=== PATIENT | female | born 1975 | race Caucasian/White ===

== ENCOUNTER 2020-04-02 08:37 | Inpatient (IN) | payer SELFPAY ==
[~2020-04-02] VITALS: Ht 165.1 cm; Wt 102.0 kg
[2020-04-02] MEDS ORDERED: LIDOCAINE-MPF 1%, 5ML ONE (09:15)
[2020-04-02] MEDS ORDERED: MORPHINE SULFATE 4 MG/ML, 1ML ONE ×2 (09:21→10:11)
[2020-04-02] MEDS ORDERED: ONDANSETRON 2MG/ML, 2ML ONE ×2 (09:21→15:27)
[2020-04-02] MEDS: MORPHINE SULFATE 4 MG/ML, 1ML IVPush PRN ×2 (09:24→10:13)
--- NOTE | 2020-04-02 09:28 | NUR ---
PIV PLACED, LABS DRAWN AND COLLECTED BY BRICK CHIMNEY SUPERVISOR. PT AMBULATED TO RESTROOM WITH STEADY GAIT TO PROVIDE URINE SAMPLE. UA COLLECTED AND TAKEN TO LAB. MEDS ADMIN PER APR. SPOUSE AT BEDSIDE. PT CONNECTED TO MONITORING.
[2020-04-02] MEDS ORDERED: SODIUM CHLORIDE 0.9% 1,000ML IVBOLUS ONE (09:30)
[2020-04-02] MEDS ORDERED: ONDANSETRON 2MG/ML, 2ML IVPush ONE (09:30)
[2020-04-02 09:38] LABS: BASOPHILS % (AUTO) 0 % (0-1); EOSINOPHILS % (AUTO) 0 % (1-7); LYMPHOCYTES % (AUTO) 14 % (22-44); MEAN CORPUSCULAR HEMOGLOBIN 33.7 pg (27.0-34.8); MEAN CORPUSCULAR HGB CONC 35.1 g/dL (32.4-35.8); MONOCYTES % (AUTO) 10 % (2-9); NEUTROPHILS % (AUTO) 76 % (42-75); PLATELET COUNT 310 x10^3/uL (130-400); RED BLOOD COUNT 4.11 x10^6/uL (3.82-5.3); RED CELL DISTRIBUTION WIDTH 12.3 % (9.6-15.2)
[2020-04-02 09:39] LABS: MD NO
[2020-04-02 09:42] LABS: ALANINE AMINOTRANSFERASE 26 U/L (12-78); ANION GAP 8 mmol/L (5-15); CALCIUM 9.3 mg/dL (8.5-10.1); CHLORIDE 108 mmol/L (98-107); CREATININE 0.84 mg/dL (0.55-1.02)
[2020-04-02 09:49] LABS: ALKALINE PHOSPHATASE 76 U/L (45-117); BILIRUBIN,TOTAL 0.6 mg/dL (0.2-1.0); TOTAL PROTEIN 7.6 g/dL (6.4-8.2)
[2020-04-02 09:56] LABS: MICROSCOPIC NOT IND
--- NOTE | 2020-04-02 09:58 | NUR ---
PT AT CT
[2020-04-02] MEDS ORDERED: OMNIPAQUE 350 MG/ML, 100ML BOTTLE ONE (10:00)
--- NOTE | 2020-04-02 10:14 | NUR ---
PT BACK FROM CT. PT C/O 09/20 PAIN. SECOND DOSE PAIN LINING CUTTER PER
--- NOTE | 2020-04-02 10:28 | NUR ---
MD AT BEDSIDE TO UPDATE PT ON POC. PT HAS APPY. PT TO GO TO SURGERY.
[2020-04-02] MEDS ORDERED: CEFOTETAN PMX 2GM/50ML 50 ML IVPB ONE (10:30)
--- NOTE | 2020-04-02 10:45 | NUR ---
WILLIAN ESPINOSA COLLECTED RAPID COVID SWAB.
--- NOTE | 2020-04-02 11:08 | NUR ---
IV ABX STARTED PER APR.
[2020-04-02] MEDS ORDERED: HYDROmorphone 1 MG/ML, 1ML INJ ONE (11:10)
--- NOTE | 2020-04-02 11:16 | NUR ---
PT C/O 11/20 PAIN. NOTIFIED. CARD READER PER APR. PT PLACED ON OXYGEN FOR SAFETY. AT BEDSIDE.
[2020-04-02] MEDS ORDERED: SODIUM CHLORIDE FLUSH 10ML SYR IVF PRN (11:30)
[2020-04-02] MEDS ORDERED: HYDROmorphone 2 MG/ML, 1ML IVPush PRN (11:30)
[2020-04-02] MEDS ORDERED: SODIUM CHLORIDE 0.9% 1,000 ML IV ONE (11:30)
[2020-04-02] MEDS: METRONIDAZOLE PMX 500MG/100ML 100 ML IV SCH ×2 (12:00→18:49)
[2020-04-02] MEDS ORDERED: HYDROmorphone 1 MG/ML, 1ML INJ IV PRN (12:00)
[2020-04-02] MEDS: LACTATED RINGERS 1,000 ML IV SCH (12:00)
[2020-04-02] MEDS ORDERED: ACETAMINOPHEN 325 MG TABLET PO PRN ×2 (12:00→15:00)
[2020-04-02] MEDS ORDERED: ENOXAPARIN 40 MG/0.4 ML SQ SCH (12:00)
[2020-04-02] MEDS ORDERED: ONDANSETRON 2MG/ML, 2ML IVPush PRN ×2 (12:00→15:00)
--- NOTE | 2020-04-02 12:03 | NUR ---
REPORT GIVEN TO SHIKHA GENTILE. PT RTG ROOM [id number]
[2020-04-02 13:00] VITALS: BP 118/72
[2020-04-02] MEDS: LOVENOX MC SCH ×2 (14:00→22:00)
[2020-04-02] MEDS ORDERED: HYDR25TA6 PO (14:05)
[2020-04-02] MEDS ORDERED: LISI20TA21 PO (14:05)
[2020-04-02] MEDS ORDERED: BUPR300T49 PO (14:05)
[2020-04-02] MEDS ORDERED: FENTANYL PF 100 MCG/2ML ONE (14:22)
[2020-04-02] MEDS ORDERED: MIDAZOLAM 1 MG/ML, 2ML ONE (14:22)
[2020-04-02] MEDS ORDERED: EPINEPHRINE 1 MG/ML, 1ML ONE (14:45)
[2020-04-02] MEDS ORDERED: BUPIVACAINE/PF 0.5% ONE (14:45)
[2020-04-02] MEDS ORDERED: DIPHENHYDRAMINE 50 MG/ML, 1ML IVPush PRN (15:00)
[2020-04-02] MEDS ORDERED: DIAZEPAM 5 MG/ML, 2ML IVPush PRN (15:00)
[2020-04-02] MEDS ORDERED: PROMETHAZINE 25 MG/ML, 1ML IVPush PRN (15:00)
[2020-04-02] MEDS ORDERED: OXYcodone 5 MG/5 ML ORAL.SOL UDC PO PRN (15:00)
[2020-04-02] MEDS ORDERED: HYDROmorphone 1 MG/ML, 1ML INJ IVPush PRN (15:00)
[2020-04-02] MEDS ORDERED: MEPERIDINE/PF 25MG/0.5ML IVPush PRN (15:00)
[2020-04-02] MEDS ORDERED: FENTANYL PF 100 MCG/2ML IV PRN (15:00)
[2020-04-02] MEDS ORDERED: PROPOFOL 10 MG/ML, 20ML ONE (15:26)
[2020-04-02] MEDS ORDERED: ROCURONIUM 10MG/ML,5ML ONE (15:27)
[2020-04-02] MEDS ORDERED: DEXAMETHASONE 4 MG/ML, 1ML ONE (15:27)
[2020-04-02] MEDS ORDERED: BUPIVACAINE/PF-EPI 0.5% 1:200K IM ONE (15:51)
[2020-04-02] MEDS ORDERED: SUGAMMADEX 200 MG/2 ML IVPush ONE (15:54)
[2020-04-02] MEDS ORDERED: OXYC5TAB2 PO ×2 (16:08→16:10)
[2020-04-02] MEDS ORDERED: OXYcodone 5 MG/5 ML ORAL.SOL UDC ONE (16:41)
[2020-04-02 20:18] VITALS: BP 121/76
[2020-04-02] MEDS ORDERED: CEFTRIAXONE PMX 1GM/50ML 50 ML IV SCH (22:00)
[2020-04-02] MEDS ORDERED: PROMETHAZINE 25 MG/ML, 1ML IM PRN (23:00)
[2020-04-02] MEDS: OXYcodone 5 MG/5 ML ORAL.SOL UDC PO PRN (23:20)
[2020-04-03] MEDS: LACTATED RINGERS 1,000 ML IV SCH (00:15)
[2020-04-03] MEDS: METRONIDAZOLE PMX 500MG/100ML 100 ML IV SCH ×2 (00:16→08:00)
[2020-04-03 00:22] VITALS: BP 111/72
[2020-04-03] MEDS: OXYcodone 5 MG/5 ML ORAL.SOL UDC PO PRN ×2 (04:24→08:45)
[2020-04-03 04:35] VITALS: BP 115/73
[2020-04-03 05:04] LABS: BASOPHILS % (AUTO) 0 % (0-1); EOSINOPHILS % (AUTO) 0 % (1-7); LYMPHOCYTES % (AUTO) 10 % (22-44); MEAN CORPUSCULAR HGB CONC 35.6 g/dL (32.4-35.8); MEAN PLATELET VOLUME 7.1 fL (7.4-10.4); MONOCYTES % (AUTO) 10 % (2-9); NEUTROPHILS % (AUTO) 80 % (42-75); PLATELET COUNT 259 x10^3/uL (130-400); RED BLOOD COUNT 3.42 x10^6/uL (3.82-5.3); RED CELL DISTRIBUTION WIDTH 12.3 % (9.6-15.2)
[2020-04-03 05:09] LABS: MD NO
[2020-04-03 05:11] LABS: ANION GAP 6 mmol/L (5-15); CALCIUM 8.2 mg/dL (8.5-10.1); CHLORIDE 111 mmol/L (98-107); CREATININE 0.57 mg/dL (0.55-1.02)
[2020-04-03] MEDS: LOVENOX MC SCH (05:30)
[2020-04-03 07:40] VITALS: BP 124/77
[2020-04-03] MEDS ORDERED: ONDA4TAB7 PO (08:35)
== END 2020-04-03 09:45 | disposition home or self-care (01) | DRG 343 ==
LOC: ED 09:23 → EDIP 11:24 → 4NE 12:40 → DCLOUNGE 04-03 09:37
PROVIDERS: ADMIT Hospitalist; ATTEND Hospitalist
PROC: 0DTJ4ZZ Resection of Appendix, Percutaneous Endoscopic Approach (ICD-10-PCS; principal; 2020-04-02 15:30)
DX: K35.80 Unspecified acute appendicitis (principal); F32.9 Major depressive disorder, single episode, unspecified; F17.210 Nicotine dependence, cigarettes, uncomplicated; I10 Essential (primary) hypertension; Z83.3 Family history of diabetes mellitus; Z90.49 Acquired absence of other specified parts of digestive tract; Z20.822 Contact with and (suspected) exposure to COVID-19
CPT/HCPCS: 36415; 96361; 96365; 96375; 96376; 99285; S0020; 74177; 80048; 80053; 81003; 83690; 84703; 85025; 87635; 88304; G0378; J0171; J0696; J1100; J1170; J2250; J2405; J2704; J3010; Q9967; J2270; J7030; J7120

== ENCOUNTER 2020-04-10 13:48 | Emergency (ER) | payer SELFPAY ==
[~2020-04-10] VITALS: Ht 165.1 cm; Wt 98.8 kg
[~2020-04-10 13:48] MED LIST: BUPR300T49 PO; HYDR25TA6 PO; LISI20TA21 PO; ONDA4TAB7 PO; OXYC5TAB2 PO
[2020-04-10 13:58] VITALS: BP 149/89
[2020-04-10] MEDS ORDERED: CEFTRIAXONE PMX 1GM/50ML 50 ML IVPB ONE (14:30)
[2020-04-10] MEDS ORDERED: SODIUM CHLORIDE FLUSH 10ML SYR IVF ONE (14:30)
--- NOTE | 2020-04-10 14:37 | NUR ---
PIV PLACED, LABS DRAWN AND SENT WITH LAB SLIP.
[2020-04-10] MEDS ORDERED: CEFTRIAXONE PMX 1GM/50ML 50 ML ONE (14:41)
[2020-04-10 14:43] LABS: BASOPHILS % (AUTO) 1 % (0-1); EOSINOPHILS % (AUTO) 1 % (1-7); LYMPHOCYTES % (AUTO) 24 % (22-44); MEAN CORPUSCULAR HEMOGLOBIN 33.2 pg (27.0-34.8); MEAN CORPUSCULAR HGB CONC 35.1 g/dL (32.4-35.8); MEAN PLATELET VOLUME 6.6 fL (7.4-10.4); MONOCYTES % (AUTO) 12 % (2-9); NEUTROPHILS % (AUTO) 62 % (42-75); PLATELET COUNT 434 x10^3/uL (130-400); RED BLOOD COUNT 4.16 x10^6/uL (3.82-5.3); RED CELL DISTRIBUTION WIDTH 12.7 % (9.6-15.2)
[2020-04-10 14:44] LABS: MD NO
[2020-04-10 14:46] LABS: ALBUMIN 3.9 g/dL (3.4-5.0); ANION GAP 7 mmol/L (5-15); CHLORIDE 106 mmol/L (98-107); CREATININE 0.92 mg/dL (0.55-1.02)
--- NOTE | 2020-04-10 14:47 | NUR ---
IV ABX STARTED PER APR. NO NEED FOR BLOOD CX, PER .
--- NOTE | 2020-04-10 15:06 | NUR ---
IV COMPLETE. ALL RESULTS ARE BACK AT THIS TIME. CHART UP FOR RECHECK.
== END 2020-04-10 15:44 | disposition home or self-care (01) ==
LOC: ED 14:05
DX: L03.311 Cellulitis of abdominal wall (principal); I10 Essential (primary) hypertension; Z90.49 Acquired absence of other specified parts of digestive tract
CPT/HCPCS: 36415; 80048; 82040; 85025; 96365; 99284; J0696

== ENCOUNTER 2020-04-15 15:19 | Emergency (ER) | payer SELFPAY ==
[~2020-04-15] VITALS: Ht 165.1 cm; Wt 99.0 kg
--- NOTE | 2020-04-15 16:38 | NUR ---
PT CAME TO ED FOR CT SCNA. PT C/O UPPER/LOWER ABD RASH THAT STARTED AFTER HAVING HER APPENDICITS REMOVED 2 WEEKS AGO. PT STATES SHE HAS SOME TENDERNESS TO THE RIGHT SIDE OF HER ABDOMEN WELL. PT RECENTLY AT ED FOR RASH AND WAS DX WITH CELLULITIS AND WAS SENT HOME WITH AN ABX. PT SAW HER SURGEON TODAY AND THE SURGEON STATED HE WANTS A CT SCAN DONE TO DETERMINE IF SHE HAS AN ABSCESS BEHIND SURGICAL SITE. PT ALSO STATES SHE HAS BEEN HAVING INTERMITTENT CHILLS, NO FEVERS.
[2020-04-15 17:26] LABS: BASOPHILS % (AUTO) 1 % (0-1); EOSINOPHILS % (AUTO) 3 % (1-7); LYMPHOCYTES % (AUTO) 30 % (22-44); MEAN CORPUSCULAR HEMOGLOBIN 32.9 pg (27.0-34.8); MEAN CORPUSCULAR HGB CONC 34.5 g/dL (32.4-35.8); MEAN PLATELET VOLUME 6.5 fL (7.4-10.4); MONOCYTES % (AUTO) 11 % (2-9); NEUTROPHILS % (AUTO) 55 % (42-75); PLATELET COUNT 397 x10^3/uL (130-400); RED BLOOD COUNT 4.13 x10^6/uL (3.82-5.3); RED CELL DISTRIBUTION WIDTH 12.8 % (9.6-15.2)
[2020-04-15 17:27] LABS: MD NO
[2020-04-15 17:39] LABS: ALBUMIN 3.9 g/dL (3.4-5.0); CALCIUM 8.9 mg/dL (8.5-10.1); CHLORIDE 108 mmol/L (98-107)
[2020-04-15 17:47] LABS: ALANINE AMINOTRANSFERASE 37 U/L (12-78); ALKALINE PHOSPHATASE 85 U/L (45-117); ANION GAP 7 mmol/L (5-15); BILIRUBIN,TOTAL 0.4 mg/dL (0.2-1.0); CREATININE 0.67 mg/dL (0.55-1.02); TOTAL PROTEIN 7.9 g/dL (6.4-8.2)
[2020-04-15 18:16] LABS: MICROSCOPIC NOT IND
--- NOTE | 2020-04-15 18:43 | NUR ---
bedside report from Jyoti GENTILE. pt care transferred at this time. pt nad, appears comfortable, bed in lowest, rails engaged, call light on lap, wctm.
[2020-04-15] MEDS ORDERED: OMNIPAQUE 350 MG/ML, 100ML BOTTLE ONE (19:00)
--- NOTE | 2020-04-15 20:01 | NUR ---
PT NAD, RESTING ON GURNEY, APPEARS COMFORTABLE, AT BS, NO CHANGE IN CONDITION, BED IN LOWEST, RAILS ENGAGED, CALL LIGHT ON LAP, WCTM. WAITING FOR CT READ
--- NOTE | 2020-04-15 20:40 | NUR ---
pt resting on shorty garcia, at bs, no change in condition, bed in lowest, rails engaged, call light on lap, wctm. chart up for recheck.
[2020-04-15 20:45] VITALS: BP 130/71
--- NOTE | 2020-04-15 20:59 | NUR ---
Patient/spouse given discharge instructions and they have confirmed that they understand the instructions. Patient ambulatory with steady gait. nad, denies additional questions or needs, no personal belongings left in room after dc
== END 2020-04-15 21:00 | disposition home or self-care (01) ==
LOC: ED 16:31
DX: R10.11 Right upper quadrant pain (principal); R10.31 Right lower quadrant pain; G89.18 Other acute postprocedural pain; L25.9 Unspecified contact dermatitis, unspecified cause; I10 Essential (primary) hypertension; F17.210 Nicotine dependence, cigarettes, uncomplicated; Z90.49 Acquired absence of other specified parts of digestive tract
CPT/HCPCS: 36415; 74177; 80053; 81003; 83690; 84703; 85025; 99285; Q9967